=== PATIENT | male | born 1950 | race Caucasian/White ===

== ENCOUNTER 2016-09-07 18:08 | Emergency (ER) | payer OTHER ==
[2016-09-07 18:22] VITALS: RESP 14; TEMP 98.4
[2016-09-07] MEDS ORDERED: NS 1,000 ML IV ONE (18:32)
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
[2016-09-07] MEDS ORDERED: IOPAMIDOL (ISOVUE-300) 100 ML BTL ONE (18:39)
[2016-09-07 18:48] LABS: % IMMATURE GRANULYOCYTES 0.3 % (0.0-1.1); ABSOLUTE IMMATURE GRANULOCYTES 0.04 10^3/uL (0.00-0.10); ADD DIFF? NO; ADD MORPH? NO; ADD SCAN? NO; ATYPICAL LYMPHOCYTE FLAG 0 (0-99); FRAGMENT RBC FLAG 0 (0-99); HEMATOCRIT 44.3 % (40.0-51.0); HEMOGLOBIN 15.7 g/dL (13.7-17.5); LEFT SHIFT FLG 0 (0-99); LIPEMIA HEMOLYSIS FLAG 90 (0-99); MEAN CELL HEMOGLOBIN 30.5 pg (27.9-34.1); MEAN CELL HEMOGLOBIN CONCENTR. 35.4 g/dL (32.4-36.7); MEAN PLATELET VOLUME 9.4 fL (8.7-11.7); PLATELET CLUMPS FLAG 10 (0-99); PLATELET COUNT 283 10^3/uL (150-400); RED BLOOD CELL COUNT 5.15 10^6/uL (4.40-6.38); RED CELL DISTRIBUTION WIDTH 12.8 % (11.5-15.2)
[2016-09-07 19:00] LABS: ANION GAP 16 mEq/L (8-16); CALCIUM 9.2 mg/dL (8.5-10.4); CARBON DIOXIDE 21 mEq/l (22-31); CHLORIDE 108 mEq/L (97-110); CREATININE 0.8 mg/dL (0.7-1.3); GLOMERULAR FILTRATION RATE > 60; GLUCOSE 108 mg/dL (70-100); SODIUM 145 mEq/L (134-144)
[2016-09-07] MEDS ORDERED: HYDROCOD/APAP 5/325 PREPACK#6 BTL TAKEHOME ONE (21:03)
[2016-09-07 23:57] VITALS: BP 152/96; PULSE 84; O2SAT 94
== END 2016-09-07 21:25 | disposition home or self-care (01) ==
LOC: CED 18:08
DX: S06.0X0A Concussion without loss of consciousness, initial encounter (principal); M48.06 Spinal stenosis, lumbar region; S39.012A Strain of muscle, fascia and tendon of lower back, initial encounter; I10 Essential (primary) hypertension; V46.6XXA Car passenger injured in collision with other nonmotor vehicle in traffic accident, initial encounter; Y92.410 Unspecified street and highway as the place of occurrence of the external cause
CPT/HCPCS: 70450-PO; 71260-PO; 72125-PO; 74177-PO; 80048-PO; 85025-PO; Q9967